=== PATIENT | male | born 1975 | race Caucasian/White ===

== ENCOUNTER → 2021-07-15 09:03 | Outpatient (CLI) | payer OTHER, MEDICAID, SELFPAY ==
--- NOTE | 2021-07-15 | DI.MRI.S_ITS ---
PROCEDURE: MR KNEE RT WO CON INDICATIONS: Pain in right knee TECHNIQUE: Noncontrast sagittal PD fast spin echo and STIR, sagittal 3-D FLASH with fat saturation; coronal T1 spin echo and PD fast spin echo with fat saturation and STIR, and axial PD fast spin echo and STIR through the knee. COMPARISON: [facility], CR, XR KNEE ARTHRITIC SERIES RT, 07/01/2021, 9:26. FINDINGS: Image quality: Images are degraded by expected metallic artifacts by the use of metal artifact reduction sequences. Diagnostic information is obtained. Menisci: The medial and lateral menisci demonstrate normal morphology and internal signal. The meniscal root ligaments appear intact. Cruciate ligaments: Partial osseous avulsion of the anterior cruciate ligament insertion is seen with healing changes. The anterior cruciate ligament remains intact. The posterior cruciate ligament is intact. Medial structures: The medial collateral ligament appears intact. The semimembranosus tendon insertions and meniscocapsular junction appear intact. Visualized portions of the pes anserinus tendons appear normal. No abnormal bursal fluid. Lateral structures: The lateral collateral ligament, long and short heads of the biceps femoris tendon appear intact. The popliteus tendon appears intact. No signs of posterolateral corner injury. Iliotibial band appears normal. Anterior structures: The quadriceps and patellar tendons appear intact. Patellar alignment is normal. No femoral trochlear dysplasia or ventral trochlear prominence. No edema in the infrapatellar fat pad. Bones and cartilage: Mild irregular bone injury is seen at the anterior aspect of the lateral femoral condyle extending to the lateral trochlea. Postsurgical changes are seen from fixation of a prior proximal tibial fracture with a metallic plate and screw construct. There is significant metallic artifact that obscures the tibia and portions of the femorotibial articular surfaces. No definite high-grade cartilage defect is seen. There is deep cartilage fissuring in the medial patellar facet. Joint space: There is a small joint effusion. The musculature surrounding the knee is normal in bulk. IMPRESSION: 1. Postsurgical changes from proximal tibial fracture fixation with metallic plate and screws, resulting in metallic artifact that obscures adjacent structures. 2. Mild trabecular bone injury at the anterior aspect of the lateral femoral condyle extending to the lateral femoral trochlea, which is of uncertain etiology and may be secondary to a direct contusion. 3. Healed osseous avulsion injury at the anterior cruciate ligament insertion. The anterior cruciate ligament fibers are intact. 4. Deep cartilage fissuring in the medial patellar facet. Portions of the articular cartilages are obscured by metal artifact. 5. No meniscal tear. The posterior cruciate ligament and collateral ligaments are intact. Dictated by: Justin Olivares M.D. on 07/21/2021 at 16:42 Approved by: Justin Olivares M.D. on 07/21/2021 at 16:54
== END ==
PROVIDERS: Referring Provider Student in an Organized Health Care Education/Training Program; Visit Provider Student in an Organized Health Care Education/Training Program
DX: S89.91XA Unspecified injury of right lower leg, initial encounter (principal); M25.561 Pain in right knee; M25.461 Effusion, right knee
CPT/HCPCS: 73721

== ENCOUNTER 2021-09-16 10:30 | Outpatient (RCR) | payer OTHER, MEDICAID, SELFPAY ==
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
--- NOTE | 2021-08-19 13:05 | PT.OTN ---
Current Diagnoses Pain in right knee (08/19/21) Physical Therapy Treatment Note PT-OP-A Visit Information Start: 08/14/21 14:47 Freq: Status: Active Protocol: Document 08/19/21 12:16 MB (Rec: 08/19/21 12:58 MB [id number]) Out-Patient Physical Therapy Visit Information Visit Information Visit Type Treatment Note Visit Note 24 PT units a year Visit Start Time 12:16 Visit Stop Time 13:00 Total Visit Minutes 44 Visit Number 2 Evaluation Information Evaluation Date 08/15/21 Precautions Precautions Previous ORIF right LE after tibial fracture. New bony contusion and surgeon states leg is stable, order for PT and strengthening PT-OP-B Current Condition Start: 08/14/21 14:47 Freq: Status: Active Protocol: Document 08/15/21 10:29 MB (Rec: 08/15/21 10:54 MB [id number]) Current Condition History of Current Condition Onset Date 16 weeks ago Current Complaints Sharp R knee pain and instability History of Current Condition Pt does not fill out LEF form well, circles many answers. He states that he woke up at night to correct a dog and ran into [employer] table and hit surgical leg. He states that he thought he might have damaged hardware from previous ORIF right tibia. In 2011, pt had a snow boarding accident and subsequent ORIF. Pt states that his right knee feels unstable d/t pain. He does not trust hopping down off stuff. Stretching is painful, rolling at night is painful. He is surprised by the amount of pain. Pt reports pain up to 7/10. Pt lives by himself. 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 Squatting and kneeling are troublesome. He is not icing. He is not taking pain pills. He is taking some cannibis. Pt sleeps on his stomach. Prior Treatments and Tests MRI right knee 07/15/21: IMPRESSION: 1. Postsurgical changes from proximal tibial fracture fixation with metallic plate and screws, resulting in metallic artifact that obscures adjacent structures. 2. Mild trabecular bone injury at the anterior aspect of the lateral femoral condyle extending to the lateral femoral trochlea, which is of uncertain etiology and may be secondary to a direct contusion. 3. Healed osseous avulsion injury at the anterior cruciate ligament insertion. The anterior cruciate ligament fibers are intact. 4. Deep cartilage fissuring in the medial patellar facet. Portions of the articular cartilages are obscured by metal artifact. 5. No meniscal tear. The posterior cruciate ligament and collateral ligaments are intact. Treatment Goals Patient/Caregiver Goals To strengthen the knee and decrease pain PT-OP-C Subjective Start: 08/14/21 14:47 Freq: Status: Active Protocol: Document 08/19/21 12:16 MB (Rec: 08/19/21 12:58 MB [id number]) OP-PT Subjective Patient Comments Patient Comments Pt states that he would like some exercises with bands. Pt has been doing deep squats and it hurts. PT-OP-G Mobility & Gait Start: 08/14/21 14:47 Freq: Status: Active Protocol: Document 08/15/21 10:29 MB (Rec: 08/15/21 16:13 MB [id number]) OP Gait Assessment Comments Gait Comments Gait assessment in socks is limited by pt not wearing shorts and his long pants are rolled up and pant legs rub together with gait. He has lateral WB on left foot. PT-OP-J Posture/Palpation/Skin Start: 08/14/21 14:47 Freq: Status: Active Protocol: Document 08/15/21 10:29 MB (Rec: 08/15/21 16:13 MB [id number]) Posture Evaluation Comments Posture Comments Posture in standing with socks donned: decreased right knee extension and WB in standing compared to the left, WB lateral left foot and through the right great toe on the right, right AC joint and scapula higher than the left, overall decreased curvature all spinal levels, decreased muscle mass right calf, right iliac crest mildly higher than the left, mild edema right knee, most noticable superior to patella, plate right fibular head with some bony- appearing lateral protrusion PT-OP-K Range of Motion Start: 08/14/21 14:47 Freq: Status: Active Protocol: Document 08/15/21 10:29 MB (Rec: 08/15/21 16:13 MB [id number]) Knee Goniometric Range of Motion Knee ROM Limitations Comments Active ROM knees in supine: right 10-135 deg with most pain with extension and then also pain with flexion Left: hypermobile with range - 5-154 deg PT-OP-M Strength Start: 08/14/21 14:47 Freq: Status: Active Protocol: Document 08/15/21 10:29 MB (Rec: 08/15/21 16:13 MB [id number]) Hip Strength Hip Manual Muscle Testing Bilateral Flexion (L2) 5 Normal Abduction 5 Normal Adduction 5 Normal Knee Strength Knee Manual Muscle Testing Bilateral Flexion (S2) 5 Normal Extension (L3) 5 Normal Ankle/Foot Strength Ankle and Foot Manual Muscle Testing Left Dorsiflexion (L4) 5 Normal Right Dorsiflexion (L4) 5 Normal Toe Strength Toe Manual Muscle Testing Left Great Toe Extension 4 Good Right Great Toe Extension 4 Good PT-OP-Q Treatments Start: 08/14/21 14:47 Freq: Status: Active Protocol: Document 08/19/21 12:16 MB (Rec: 08/19/21 12:58 MB [id number]) Cardio Equipment Bicycle (Upright) Duration (Minutes) 12 Resistance 10-12 Seat Position 7 Therapeutic Exercises Supine Exercises Arnoldo stretch Side bilateral Comments Pelvic tilt and opposite leg bent, 30 sec Hamstring stretch with AP Side bilateral Comments 30 reps AP, opposite leg straight, cues to slow down SLR Side right Comments 5 reps slowly, cues to keep slow speed up and down Manual Therapy Treatment Other Other Manual Treatments Black KT right knee to support knee with c strip under patella and B I strips to support medial and lateral knee Self-Care/Home Management Treatment Education Other Education Benefits of thigh high compression hose and not knee high compression hose in order to help patellar area swelling. PT measures leg for hose should he decide to buy them and PT provides handout with the info on it PT-OP-T Assessment and Plan Start: 08/14/21 14:47 Freq: Status: Active Protocol: Document 08/19/21 12:16 MB (Rec: 08/19/21 12:58 MB [id number]) Physical Therapy Assessment Rehab Potential Rehabilitation Potential Fair Evaluation Complexity Number of Personal Factors/Comorbidities 1-2 Number of Body Systems Impaired 1-2 Clinical Presentation at Evaluation Evolving Impairments Impairments Activity Tolerance,Balance, Functional Activities, Functional Mobility,Gait, Integument,Pain,Posture,ROM, Soft Tissue Mobility,Strength Other Concerns Fall Risk Yes Goals 2 Fdc Goal (LTG) Pt will perform progressive HEP with I including balance, strengthening, flexibility and gait activities to improve pain and functional strengthy by 10/16/21. LTG Duration 8 weeks 1 Ceramics Technician Goal (LTG) Pt will present with an LEF score to reflect no more than 20% impairment to reflect improved function by 10/16/21. LTG Duration 8 weeks Assessment Summary Assessment Initiated education about edema today, measured for compression and ed pt about benefits of it, progressed flexibility and strengthening. Con't per below. Physical Therapy Plan Frequency and Duration Frequency of Treatment 1-2x/wk Duration of Treatment 10 weeks Plan of Care Start Date 08/15/21 Plan of Care End Date 08/26/21 Therapeutic Interventions Therapeutic Interventions Aquatic Therapy,Balance Training,Gait Training,Home Exercise Program,Manual Therapy,Neuromuscular Re- education,Patient/Caregiver Education,Self-Care/Home Management,Soft Tissue Mobilization,Taping, Therapeutic Activities, Therapeutic Exercises Modalities Cold Pack/Ice Massage,Hot Packs Next Visit Focus/Plan Next Note Type Treatment Note Next Visit Plan Progress manual work and consider rolling pin Progress core work including bridge, clam with band Progress standing strengthening with band--crab walking and backwards walking, balance exercise
--- NOTE | 2021-08-21 11:10 | PT.OTN ---
Current Diagnoses Pain in right knee (08/21/21) Physical Therapy Treatment Note PT-OP-A Visit Information Start: 08/14/21 14:47 Freq: Status: Active Protocol: Document 08/21/21 10:32 MB (Rec: 08/21/21 11:07 MB [id number]) Out-Patient Physical Therapy Visit Information Visit Information Visit Type Treatment Note Visit Note 24 PT units a year Visit Start Time 10:32 Visit Stop Time 11:10 Total Visit Minutes 38 Visit Number 05/23 Evaluation Information Evaluation Date 08/15/21 Precautions Precautions Previous ORIF right LE after tibial fracture. New bony contusion and surgeon states leg is stable, order for PT and strengthening PT-OP-B Current Condition Start: 08/14/21 14:47 Freq: Status: Active Protocol: Document 08/15/21 10:29 MB (Rec: 08/15/21 10:54 MB [id number]) Current Condition History of Current Condition Onset Date 16 weeks ago Current Complaints Sharp R knee pain and instability History of Current Condition Pt does not fill out LEF form well, circles many answers. He states that he woke up at night to correct a dog and ran into [employer] table and hit surgical leg. He states that he thought he might have damaged hardware from previous ORIF right tibia. In 2011, pt had a snow boarding accident and subsequent ORIF. Pt states that his right knee feels unstable d/t pain. He does not trust hopping down off stuff. Stretching is painful, rolling at night is painful. He is surprised by the amount of pain. Pt reports pain up to 7/10. Pt lives by himself. 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 Squatting and kneeling are troublesome. He is not icing. He is not taking pain pills. He is taking some cannibis. Pt sleeps on his stomach. Prior Treatments and Tests MRI right knee 07/15/21: IMPRESSION: 1. Postsurgical changes from proximal tibial fracture fixation with metallic plate and screws, resulting in metallic artifact that obscures adjacent structures. 2. Mild trabecular bone injury at the anterior aspect of the lateral femoral condyle extending to the lateral femoral trochlea, which is of uncertain etiology and may be secondary to a direct contusion. 3. Healed osseous avulsion injury at the anterior cruciate ligament insertion. The anterior cruciate ligament fibers are intact. 4. Deep cartilage fissuring in the medial patellar facet. Portions of the articular cartilages are obscured by metal artifact. 5. No meniscal tear. The posterior cruciate ligament and collateral ligaments are intact. Treatment Goals Patient/Caregiver Goals To strengthen the knee and decrease pain PT-OP-C Subjective Start: 08/14/21 14:47 Freq: Status: Active Protocol: Document 08/21/21 10:32 MB (Rec: 08/21/21 11:07 MB [id number]) OP-PT Subjective Patient Comments Patient Comments Pt states that the tape was hard to get off last night. He would like to go without out. He did two sets of the SLR. He has not gotten to the stretches yet. He left his folder in someone's car. PT-OP-G Mobility & Gait Start: 08/14/21 14:47 Freq: Status: Active Protocol: Document 08/15/21 10:29 MB (Rec: 08/15/21 16:13 MB [id number]) OP Gait Assessment Comments Gait Comments Gait assessment in socks is limited by pt not wearing shorts and his long pants are rolled up and pant legs rub together with gait. He has lateral WB on left foot. PT-OP-J Posture/Palpation/Skin Start: 08/14/21 14:47 Freq: Status: Active Protocol: Document 08/15/21 10:29 MB (Rec: 08/15/21 16:13 MB [id number]) Posture Evaluation Comments Posture Comments Posture in standing with socks donned: decreased right knee extension and WB in standing compared to the left, WB lateral left foot and through the right great toe on the right, right AC joint and scapula higher than the left, overall decreased curvature all spinal levels, decreased muscle mass right calf, right iliac crest mildly higher than the left, mild edema right knee, most noticable superior to patella, plate right fibular head with some bony- appearing lateral protrusion PT-OP-K Range of Motion Start: 08/14/21 14:47 Freq: Status: Active Protocol: Document 08/15/21 10:29 MB (Rec: 08/15/21 16:13 MB [id number]) Knee Goniometric Range of Motion Knee ROM Limitations Comments Active ROM knees in supine: right 10-135 deg with most pain with extension and then also pain with flexion Left: hypermobile with range - 5-154 deg PT-OP-M Strength Start: 08/14/21 14:47 Freq: Status: Active Protocol: Document 08/15/21 10:29 MB (Rec: 08/15/21 16:13 MB [id number]) Hip Strength Hip Manual Muscle Testing Bilateral Flexion (L2) 5 Normal Abduction 5 Normal Adduction 5 Normal Knee Strength Knee Manual Muscle Testing Bilateral Flexion (S2) 5 Normal Extension (L3) 5 Normal Ankle/Foot Strength Ankle and Foot Manual Muscle Testing Left Dorsiflexion (L4) 5 Normal Right Dorsiflexion (L4) 5 Normal Toe Strength Toe Manual Muscle Testing Left Great Toe Extension 4 Good Right Great Toe Extension 4 Good PT-OP-Q Treatments Start: 08/14/21 14:47 Freq: Status: Active Protocol: Document 08/21/21 10:32 MB (Rec: 08/21/21 11:07 MB [id number]) Cardio Equipment Bicycle (Upright) Duration (Minutes) 10 Resistance 12-13 Seat Position 7 Therapeutic Exercises Supine Exercises Clam with knees bent Side bilateral Resistance Level 3 band around knees Comments 20 reps slowly, glutes squeeze Arnoldo stretch Side bilateral Reps/Minutes Many reps for form, correction , opp leg up Comments Pelvic tilt and opposite leg dangling off side of bed, many trials Hamstring stretch with AP Side bilateral Reps/Minutes Many reps for form Comments 30 reps AP, opposite leg straight, cues to slow down SLR Side right Comments 10 reps slowly, cues to keep slow speed up and down PT-OP-T Assessment and Plan Start: 08/14/21 14:47 Freq: Status: Active Protocol: Document 08/21/21 10:32 MB (Rec: 08/21/21 11:07 MB [id number]) Physical Therapy Assessment Rehab Potential Rehabilitation Potential Fair Evaluation Complexity Number of Personal Factors/Comorbidities 1-2 Number of Body Systems Impaired 1-2 Clinical Presentation at Evaluation Evolving Impairments Impairments Activity Tolerance,Balance, Functional Activities, Functional Mobility,Gait, Integument,Pain,Posture,ROM, Soft Tissue Mobility,Strength Other Concerns Fall Risk Yes Goals 2 Millwright Helper Goal (LTG) Pt will perform progressive HEP with I including balance, strengthening, flexibility and gait activities to improve pain and functional strengthy by 10/16/21. LTG Duration 8 weeks 1 Millwright Helper Goal (LTG) Pt will present with an LEF score to reflect no more than 20% impairment to reflect improved function by 10/16/21. LTG Duration 8 weeks Assessment Summary Assessment Reviewed exercises today as pt did not get to perform all of them over the last two days. Did add hip strengtheing today and pt performs well. Physical Therapy Plan Frequency and Duration Frequency of Treatment 1-2x/wk Duration of Treatment 10 weeks Plan of Care Start Date 08/15/21 Plan of Care End Date 08/26/21 Therapeutic Interventions Therapeutic Interventions Aquatic Therapy,Balance Training,Gait Training,Home Exercise Program,Manual Therapy,Neuromuscular Re- education,Patient/Caregiver Education,Self-Care/Home Management,Soft Tissue Mobilization,Taping, Therapeutic Activities, Therapeutic Exercises Modalities Cold Pack/Ice Massage,Hot Packs Next Visit Focus/Plan Next Note Type Treatment Note Next Visit Plan Manual work on right LE including vastus lateralis and consider rolling pin Progress core work including bridge with band Progress standing strengthening with band--crab walking and backwards walking, balance exercise. If his knee doesn't bother him, try wall squat with band around knees in pain-free range.
--- NOTE | 2021-09-01 11:14 | PT.OTN ---
Current Diagnoses Pain in right knee (09/01/21) Physical Therapy Treatment Note PT-OP-A Visit Information Start: 08/14/21 14:47 Freq: Status: Active Protocol: Document 09/01/21 10:31 MB (Rec: 09/01/21 11:14 MB [id number]) Out-Patient Physical Therapy Visit Information Visit Information Visit Type Treatment Note Visit Note 24 PT units a year Visit Start Time 10:31 Visit Stop Time 11:13 Total Visit Minutes 42 Visit Number 11/20 Evaluation Information Evaluation Date 08/15/21 Precautions Precautions Previous ORIF right LE after tibial fracture. New bony contusion and surgeon states leg is stable, order for PT and strengthening PT-OP-B Current Condition Start: 08/14/21 14:47 Freq: Status: Active Protocol: Document 08/15/21 10:29 MB (Rec: 08/15/21 10:54 MB [id number]) Current Condition History of Current Condition Onset Date 16 weeks ago Current Complaints Sharp R knee pain and instability History of Current Condition Pt does not fill out LEF form well, circles many answers. He states that he woke up at night to correct a dog and ran into [employer] table and hit surgical leg. He states that he thought he might have damaged hardware from previous ORIF right tibia. In 2011, pt had a snow boarding accident and subsequent ORIF. Pt states that his right knee feels unstable d/t pain. He does not trust hopping down off stuff. Stretching is painful, rolling at night is painful. He is surprised by the amount of pain. Pt reports pain up to 7/10. Pt lives by himself. 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 Squatting and kneeling are troublesome. He is not icing. He is not taking pain pills. He is taking some cannibis. Pt sleeps on his stomach. Prior Treatments and Tests MRI right knee 07/15/21: IMPRESSION: 1. Postsurgical changes from proximal tibial fracture fixation with metallic plate and screws, resulting in metallic artifact that obscures adjacent structures. 2. Mild trabecular bone injury at the anterior aspect of the lateral femoral condyle extending to the lateral femoral trochlea, which is of uncertain etiology and may be secondary to a direct contusion. 3. Healed osseous avulsion injury at the anterior cruciate ligament insertion. The anterior cruciate ligament fibers are intact. 4. Deep cartilage fissuring in the medial patellar facet. Portions of the articular cartilages are obscured by metal artifact. 5. No meniscal tear. The posterior cruciate ligament and collateral ligaments are intact. Treatment Goals Patient/Caregiver Goals To strengthen the knee and decrease pain PT-OP-C Subjective Start: 08/14/21 14:47 Freq: Status: Active Protocol: Document 09/01/21 10:31 MB (Rec: 09/01/21 11:14 MB [id number]) OP-PT Subjective Patient Comments Patient Comments Pt states that he feels the PT is working. He notices more flexibility and strength. He is dancing when he works now and he hadn't been doing that. He stomped on some ice to test it and it hurt his knee. He stomped up a hill with his slippers and ran after his neighbor's dog about two blocks. Pt moved a palate of bricks yesterday. Pt has lost handouts. Pt went split boarding twice. PT-OP-G Mobility & Gait Start: 08/14/21 14:47 Freq: Status: Active Protocol: Document 08/15/21 10:29 MB (Rec: 08/15/21 16:13 MB [id number]) OP Gait Assessment Comments Gait Comments Gait assessment in socks is limited by pt not wearing shorts and his long pants are rolled up and pant legs rub together with gait. He has lateral WB on left foot. PT-OP-J Posture/Palpation/Skin Start: 08/14/21 14:47 Freq: Status: Active Protocol: Document 08/15/21 10:29 MB (Rec: 08/15/21 16:13 MB [id number]) Posture Evaluation Comments Posture Comments Posture in standing with socks donned: decreased right knee extension and WB in standing compared to the left, WB lateral left foot and through the right great toe on the right, right AC joint and scapula higher than the left, overall decreased curvature all spinal levels, decreased muscle mass right calf, right iliac crest mildly higher than the left, mild edema right knee, most noticable superior to patella, plate right fibular head with some bony- appearing lateral protrusion PT-OP-K Range of Motion Start: 08/14/21 14:47 Freq: Status: Active Protocol: Document 08/15/21 10:29 MB (Rec: 08/15/21 16:13 MB [id number]) Knee Goniometric Range of Motion Knee ROM Limitations Comments Active ROM knees in supine: right 10-135 deg with most pain with extension and then also pain with flexion Left: hypermobile with range - 5-154 deg PT-OP-M Strength Start: 08/14/21 14:47 Freq: Status: Active Protocol: Document 08/15/21 10:29 MB (Rec: 08/15/21 16:13 MB [id number]) Hip Strength Hip Manual Muscle Testing Bilateral Flexion (L2) 5 Normal Abduction 5 Normal Adduction 5 Normal Knee Strength Knee Manual Muscle Testing Bilateral Flexion (S2) 5 Normal Extension (L3) 5 Normal Ankle/Foot Strength Ankle and Foot Manual Muscle Testing Left Dorsiflexion (L4) 5 Normal Right Dorsiflexion (L4) 5 Normal Toe Strength Toe Manual Muscle Testing Left Great Toe Extension 4 Good Right Great Toe Extension 4 Good PT-OP-Q Treatments Start: 08/14/21 14:47 Freq: Status: Active Protocol: Document 09/01/21 10:31 MB (Rec: 09/01/21 11:14 MB [id number]) Cardio Equipment Bicycle (Upright) Duration (Minutes) 12 Resistance 14-16 Seat Position 7 Therapeutic Exercises Supine Exercises Rolling pin STM Side right Comments STM vastus lateralis Clam with knees bent Side bilateral Resistance Level 3 band around knees Comments 20 reps slowly, glutes squeeze Arnoldo stretch Side bilateral Comments Opposite leg pulled up to chest Hamstring stretch with AP Side bilateral Comments 30 reps AP SLR Side right Comments 10 reps slowly, cues to keep slow speed up and down PT-OP-T Assessment and Plan Start: 08/14/21 14:47 Freq: Status: Active Protocol: Document 09/01/21 10:31 MB (Rec: 09/01/21 11:14 MB [id number]) Physical Therapy Assessment Rehab Potential Rehabilitation Potential Fair Evaluation Complexity Number of Personal Factors/Comorbidities 1-2 Number of Body Systems Impaired 1-2 Clinical Presentation at Evaluation Evolving Impairments Impairments Activity Tolerance,Balance, Functional Activities, Functional Mobility,Gait, Integument,Pain,Posture,ROM, Soft Tissue Mobility,Strength Other Concerns Fall Risk Yes Goals 2 Long-Term Goal (LTG) Pt will perform progressive HEP with I including balance, strengthening, flexibility and gait activities to improve pain and functional strengthy by 3/3/22. LTG Duration 8 weeks 1 Order Detailer Goal (LTG) Pt will present with an LEF score to reflect no more than 20% impairment to reflect improved function by 10/30/21. LTG Duration 8 weeks Physical Therapy Plan Frequency and Duration Frequency of Treatment 1-2x/wk Duration of Treatment 10 weeks Plan of Care Start Date 09/01/21 Plan of Care End Date 10/30/21 Therapeutic Interventions Therapeutic Interventions Aquatic Therapy,Balance Training,Gait Training,Home Exercise Program,Manual Therapy,Neuromuscular Re- education,Patient/Caregiver Education,Self-Care/Home Management,Soft Tissue Mobilization,Taping, Therapeutic Activities, Therapeutic Exercises Modalities Cold Pack/Ice Massage,Hot Packs Next Visit Focus/Plan Next Note Type Treatment Note Next Visit Plan Progress core work including bridge with band Progress standing strengthening with band--crab walking and backwards walking, balance exercise. If his knee doesn't bother him, try wall squat with band around knees in pain-free range.
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
--- NOTE | 2021-09-01 11:18 | PT.OPPOC ---
Physical, Occupational & Speech Therapy At [facility] Current Diagnoses Pain in right knee (09/01/21) Visit Care Team Role Provider Type Richard Daniels MD Attending Provider Non-Staff Family Provider Primary Care Provider Referring Provider Specialty: Orthopedic Surgery Address: [address] [place], [place] [address]jacki Sahu, [place], [address] Fax: Email: Plan Of Care PT-OP-T Assessment and Plan Start: 08/14/21 14:47 Freq: Status: Active Protocol: Document 09/01/21 10:31 MB (Rec: 09/01/21 11:14 MB [id number]) Physical Therapy Assessment Rehab Potential Rehabilitation Potential Fair Evaluation Complexity Number of Personal Factors/Comorbidities 1-2 Number of Body Systems Impaired 1-2 Clinical Presentation at Evaluation Evolving Impairments Impairments Activity Tolerance,Balance, Functional Activities, Functional Mobility,Gait, Integument,Pain,Posture,ROM, Soft Tissue Mobility,Strength Other Concerns Fall Risk Yes Goals 2 Alf Goal (LTG) Pt will perform progressive HEP with I including balance, strengthening, flexibility and gait activities to improve pain and functional strengthy by 10/30/21. LTG Duration 8 weeks 1 Alf Goal (LTG) Pt will present with an LEF score to reflect no more than 20% impairment to reflect improved function by 10/30/21. LTG Duration 8 weeks Assessment Summary Assessment Pt misplaced his folder and so reviewed exercises and re-ed on benefits of compression. Provided more handouts and another theraband. More manual work today. Con't per plan below. Physical Therapy Plan Frequency and Duration Frequency of Treatment 1-2x/wk Duration of Treatment 10 weeks Plan of Care Start Date 09/01/21 Plan of Care End Date 10/30/21 Therapeutic Interventions Therapeutic Interventions Aquatic Therapy,Balance Training,Gait Training,Home Exercise Program,Manual Therapy,Neuromuscular Re- education,Patient/Caregiver Education,Self-Care/Home Management,Soft Tissue Mobilization,Taping, Therapeutic Activities, Therapeutic Exercises Modalities Cold Pack/Ice Massage,Hot Packs Next Visit Focus/Plan Next Note Type Treatment Note Next Visit Plan Progress core work including bridge with band Progress standing strengthening with band--crab walking and backwards walking, balance exercise. If his knee doesn't bother him, try wall squat with band around knees in pain-free range. Plan of Care Dates Plan of Care Start Date 09/01/21 Plan of Care End Date 10/30/21 Electronically Signed by: Jane Galan, CARLOS 09/01/21 8023 Please Sign and Return: I have reviewed this Plan of Care and certify that the skilled therapy services above are required to meet the patient?s needs. Physician Signature Date Printed Name and Credentials Clinical Instructor Signature Printed Name and Credentials
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
== END 2021-09-30 08:25 ==
LOC: PHYS 10:30
PROVIDERS: Family Provider Student in an Organized Health Care Education/Training Program; PCP Student in an Organized Health Care Education/Training Program; Referring Provider Student in an Organized Health Care Education/Training Program; Visit Provider Student in an Organized Health Care Education/Training Program
DX: M25.561 Pain in right knee (principal)
CPT/HCPCS: 97110; 97140; 97161; 97535